=== PATIENT | female | born 1980 | race Caucasian/White ===

== ENCOUNTER 2017-02-28 12:41 | Emergency (ER) | payer BC, OTHER ==
[2017-02-28] MEDS ORDERED: IBUPROFEN 400 MG TABLET PO STA (13:00)
[2017-02-28] MEDS ORDERED: oxyCOD/ACETAMIN 5 MG/325 MG TABLET PO STA (13:00)
[2017-02-28] MEDS ORDERED: ONDANSETRON ODT 4 MG TABLET TL STA (13:04)
--- NOTE | 2017-02-28 13:04 | ED Physician Documentation ---
History of Present Illness - Stated complaint Stated Complaint: R FOOT/TOE INJURY - Additonal information Additional information: hx from pt 36 f tall stool fell over and landed on her right toes also aggravated her chronic back pain but no new numbness weakness etc she is mostly worried about her toes denies preg Review of Systems Constitutional: denies: Fever, Chills : denies: Now EGA Skin: reports: Laceration (s) (small) Musculoskeletal: reports: Extremity pain Endocrine: denies: Easy bruising / bleeding Immunocompromised: denies: Immunocompromised PD PAST MEDICAL HISTORY - Present Medications Home Medications: Ambulatory Orders Medication Instructions Recorded Confirmed DULoxetine [Cymbalta] 60 mg PO DAILY 02/28/17 02/28/17 Loratadine 10 mg PO DAILY 02/28/17 02/28/17 - Allergies Allergies/Adverse Reactions: Allergies Allergy/AdvReac Type Severity Reaction Status Date / Time No Known Drug Allergies Allergy Verified 02/28/17 13:06 PD ED PE NORMAL - Vitals Vital signs reviewed: Yes - Cardiac Cardiac: RRR - Respiratory Respiratory: No respiratory distress, Clear bilaterally - Back Back: Other (no focal bony TTP) - Extremities Extremities: Other (TTP across all toes dorsal aspect, small sup lac base of 4th toenail, MSV intact except to very tip of each toe) Results - Vitals Vitals: Vital Signs - 24 hr 02/28/17 13:00 Temperature 36.8 C Heart Rate 79 Respiratory 18 Rate Blood Pressure 117/84 H O2 Saturation 100 Oxygen O2 Source Room air - Rads (name of study) foot Radiology: See rad report (no fx) Departure - Departure Disposition: 01 Home, Self Care Clinical Impression: Crushing injury of foot, right Qualifiers: Encounter type: initial encounter Qualified Code(s): S97.81XA - Crushing injury of right foot, initial encounter Condition: Good Comments: The xray was fine - no fracture Recommend using the crutches to relieve the stress on the painful foot Ice, elevation, motrin and tylenol for the pain The small laceration should heal fine - just wash it and apply some antibiotic ointment every day
[2017-02-28] MEDS ORDERED: oxyCOD/ACETAMIN 5 MG/325 MG TABLET PO ONE (13:18)
[2017-02-28] MEDS ORDERED: IBUPROFEN 400 MG TABLET PO ONE (13:18)
[2017-02-28] MEDS ORDERED: ONDANSETRON ODT 4 MG TABLET ONE (13:19)
--- NOTE | 2017-02-28 13:44 | XRAY Preliminary Report ---
Exam: XR Foot 3 View RT IMPRESSION: No acute fracture or dislocation. [facility] SITE ID: [id number]
--- NOTE | 2017-02-28 13:46 | XRAY Report ---
EXAM: RIGHT FOOT RADIOGRAPHY EXAM DATE: 02/28/2017 01:24 PM. CLINICAL HISTORY: Stool fell on toes. COMPARISON: None. TECHNIQUE: 3 views. FINDINGS: Bones: Normal. No fractures or bone lesions. Calcaneal enthesopathy. Joints: Minimal degenerative changes at the first metatarsophalangeal joint. No subluxations. Soft Tissues: Normal. No soft tissue swelling. IMPRESSION: No acute fracture or dislocation. [facility] Referring Provider Line: [phone] SITE ID: [id number]
[2017-02-28 14:38] VITALS: BP 107/69
== END 2017-02-28 14:42 | disposition home or self-care (01) ==
LOC: ED 12:41
DX: S97.81XA Crushing injury of right foot, initial encounter (principal); W22.8XXA Striking against or struck by other objects, initial encounter
CPT/HCPCS: 73630; 99283; A9270; Q0162